=== PATIENT | male | born 1970 | race Caucasian/White ===

== ENCOUNTER 2017-03-02 09:14 | Emergency (ER) | payer OTHER ==
[~2017-03-02] VITALS: Ht 190.5 cm; Wt 103.3 kg
[~2017-03-02 09:14] MED LIST: AUGMENTIN875 MG PO; LEVOTHYROXINE25 MCG PO; LEVOTHYROXINE300 MCG PO; METFORMIN HCL1000 MG PO; NASACORT AQ16.5 GM BOTH NARES; NASACORT10.8 ML BOTH NARES; NICOTINE PATCH1 EAC2 TD
[2017-03-02 10:00] LABS: ADD MIUA? NO; BILIRUBIN NEGATIVE; BLOOD NEGATIVE; COLOR YELLOW ((YELLOW)); GLUCOSE (STRIP) 50; KETONES NEGATIVE; LEUKOCYTES NEGATIVE; NITRITE NEGATIVE; PROTEIN (STRIP) NEGATIVE; SPECIFIC GRAVITY 1.019 (1.000-1.030); UROBILINOGEN 0.2 MG/DL (0.2-1.0)
[2017-03-02 10:08] LABS: BASOPHIL COUNT 0.1 K/uL (0-0.1); EOSINOPHIL (%) 2.5 % (0-5); EOSINOPHIL COUNT 0.2 K/uL (0-0.3); HEMATOCRIT 49.8 % (38.0-50.0); IMMATURE GRANULOCYTE (%) 0.3 % (0.0-0.7); INSTRUMENT ABS NEUTROPHIL CT 2.4 K/uL; LYMPHOCYTE COUNT 2.9 K/uL (1.0-2.8); MCH 30.6 PG (29.0-34.0); MCHC 34.3 G/DL (30.0-36.0); MCV 89.1 FL (86-99); MEAN PLAT.VOLUME 11.8 uM^3 (9.0-12.4); MONOCYTE (%) 8.5 % (3-12); MONOCYTE COUNT 0.5 K/uL (0-0.8); NEUTROPHIL (%) 39.4 % (45-76); NEUTROPHIL COUNT 2.4 K/uL (1.8-6.4); PLATELET COUNT 206 K/uL (156-360); RBC DIS.WIDTH-CV 12.8 % (11.8-14.6); RED BLOOD COUNT 5.59 M/uL (4.00-5.50); WHITE BLOOD COUNT 6.1 K/uL (4.1-10.2)
[2017-03-02 10:17] LABS: CHLORIDE 104 mEq/L (99-109); POTASSIUM 4.4 mEq/L (3.7-5.4); SODIUM 140 mEq/L (136-147)
[2017-03-02 10:19] LABS: GLUCOSE 165 mg/dL (70-99)
[2017-03-02 10:21] LABS: ANION GAP 9 MEQ/L (2-14)
[2017-03-02 10:23] LABS: GFR ESTIMATE (CALCULATED) > 59 mL/min/
[2017-03-02 10:24] LABS: UREA NITROGEN (BUN) 10 mg/dL (9-23)
[2017-03-02] MEDS ORDERED: SYNTHROID300 MCG PO (11:04)
[2017-03-02] MEDS ORDERED: NOVOFINE NEE1 NEEDLE MC (11:04)
[2017-03-02] MEDS ORDERED: LEVEMIR FL100 UNIT/1 SC (11:04)
[2017-03-02] MEDS ORDERED: SYNTHROID25 MCG PO (11:04)
[2017-03-02 11:13] VITALS: BP 133/95
[2017-03-02 11:27] LABS: Estimated Average Glucose 217 mg/dL (70-123); HEMOGLOBIN A1c (GLYCOHEMOGLOB) 9.2 % HGB (Below 5.7)
== END 2017-03-02 11:15 | disposition home or self-care (01) ==
LOC: EME 09:14
PROVIDERS: Emergency Medicine
DX: E11.65 Type 2 diabetes mellitus with hyperglycemia (principal); Z76.0 Encounter for issue of repeat prescription; Z79.4 Long term (current) use of insulin; F17.200 Nicotine dependence, unspecified, uncomplicated
CPT/HCPCS: 80048; 81003; 83036; 85025; 99281; 99283